=== PATIENT | male | born 1975 | race Caucasian/White ===

== ENCOUNTER 2024-04-23 10:26 | Emergency (ER) | payer OTHER, SELFPAY ==
[2024-04-23 10:34] VITALS: BP 108/79
--- NOTE | 2024-04-23 10:40 | ED.GENMED ---
History of Present Illness
General
Chief Complaint: Musculo-Skeletal Complaint
Source: patient
Exam Limitations: none
Time Seen by Provider: 04/23/24 10:46
Nursing documentation reviewed up to this point in time: agreed with
History of Present Illness
History of Present Illness:
49-year-old male presenting to the emergency department with concerns of ongoing right-sided shoulder discomfort after an injury while playing basketball. He claims he ran towards a wall to break his momentum he outstretched his right arm and felt
a sharp pain to his right shoulder. Initially had mild pain but discomfort and decreased range of motion has worsened over the past 2 days since the event. Denies any numbness weakness chest pain shortness of breath neck pain nausea vomiting.
Past History
Past History
ED Past Medical History: Other (History of Kawasaki disease, kidney stones); Negative Asthma, HTN, Hypercholesterolemia or NIDDM
ED Past Surgical History: Urological (Lithotripsy 1998, vasectomy)
Social History
Tobacco: Former smoker
Alcohol: Occasional
Personal:
Living: with family
Employment: Employed
Review of Systems
Review of Systems
Allergies reviewed?: Yes
All Other Systems: ROS reviewed and negative except as documented in HPI and ROS
Phy Exam
Physical Exam
Physical Exam:
GENERAL: Alert , in no apparent distress
EYE: pupils equal and reactive
NECK: Supple, no significant adenopathy.
ENT: o/p clr, mmm.
CARDIAC: Regular rate and rhythm .
LUNGS: Clear breath sounds bilaterally, no acute respiratory distress, no wheezes/rales/rhonchi
ABDOMEN: Soft, without focal tenderness, no r/g, no cvat
NEUROLOGICAL: Alert and oriented, no focal neuro deficits
SKIN: Warm and dry, skin intact.
MUSCULOSKELETAL: Significant discomfort when palpating the left deltoid region no tenderness throughout the clavicle scapula or the remainder of the upper extremity. Significant discomfort with abduction of the right shoulder not able to put his
arm behind his back without significant discomfort. Positive empty can test. No edema, well perfused.
PSYCH: Normal and appropriate interaction.
Course
Orders/Labs/Results
Orders:
Orders
04/23/24 10:38
Shoulder, Right, Trauma [CR Shoulder, Trauma - Right] Urgent
Comment: fell into wall and twisted arm
Reason For Exam: right shoulder pain since tuesday
Vital Signs
Initial and Last Documented VS:
Initial Vital Signs
Temp Pulse Resp BP Pulse Ox
98.0 F 70 16 108/79 98
04/23/24 10:34 04/23/24 10:34 04/23/24 10:34 04/23/24 10:34 04/23/24 10:34
Last Documented Vital Signs
Temp Pulse Resp BP Pulse Ox
98.0 F 70 16 108/79 98
04/23/24 10:34 04/23/24 10:34 04/23/24 10:34 04/23/24 10:34 04/23/24 10:34
MDM/Problems Addressed
MDM/Problems Addressed:
49-year-old male presenting to the emergency department after hitting his right shoulder while playing basketball 2 days ago. Initially mild symptoms but worsening decreased range of motion and discomfort to the right shoulder since. Significant
discomfort with overhead motion and movement behind the back of the right arm. On examination he had a positive empty can test and significant discomfort with abduction of the shoulder. Clinically seems to be consistent with potential rotator cuff
injury. X-ray without emergent findings. Stable for outpatient follow-up with orthopedics. Return precautions given.
*Critical Care Note
Total Time (30-74mins, 75-104mins- exclusive of procedures): Not Applicable
ED Attending Note
-
Portions of this chart may have been created with voice recognition software.� Occasional wrong word or��sound alike� substitutions may have occurred due to the inherent limitations of voice recognition software.
Discharge Plan
Departure
Patient Disposition: Home (Routine Discharge)
Date of Disposition: 04/23/24
Time of Disposition: 11:05
Patient with high blood pressure during this ER visit?: No
Condition: Good
Covid-19: Not Applicable
Discharge Problem:
Shoulder sprain
Instructions: Rotator Cuff Injury (DC)
Prescriptions:
No Action
hydrochlorothiazide 25 MG tablet
25 mg PO DAILY
tamsulosin 0.4 MG capsule
0.4 mg PO DAILY Qty: 14 0RF
tramadol 50 MG tablet
50 mg PO Q8HPRN PRN (Reason: pain) Qty: 30 0RF
phenazopyridine 100 MG tablet
100 mg PO BID Qty: 30 0RF
sulfamethoxazole-trimethoprim 1 TABLET tablet
1 tab PO BID Qty: 10 0RF
Referrals:
Tony Alatorre MD [Active] - Follow up in 1 week
Activity Restrictions/Additional Instructions:
You came to the emergency department today with concerns of shoulder discomfort. Here your x-ray was normal there likely is a soft tissue injury or potential rotator cuff injury. He will need to follow-up closely with orthopedics in the next 1 to
2 weeks. Return for any worsening, new or concerning symptoms.
Interventions
Interventions:
*Risk Screen - Suicide Last Done: 04/23/24 10:34
*Neglect/Abuse Screening Last Done: 04/23/24 10:34
Discharge Date and Time
Print Language: [place]
== END 2024-04-23 11:13 | disposition home or self-care (01) ==
LOC: EMR 10:26
PROVIDERS: EMERGENCY PHYSICIAN Student in an Organized Health Care Education/Training Program
DX: S43.401A Unspecified sprain of right shoulder joint, initial encounter (principal); Y93.67 Activity, basketball; M30.3 Mucocutaneous lymph node syndrome [Kawasaki]; Z87.442 Personal history of urinary calculi; Z87.891 Personal history of nicotine dependence
CPT/HCPCS: 99283; 73030

== ENCOUNTER 2024-08-18 04:24 | Emergency (ER) | payer OTHER, SELFPAY ==
[2024-08-18 04:26] VITALS: BP 130/79
[2024-08-18 04:38] VITALS: BMI 27.2
[2024-08-18 04:54] LABS: % Basophils 0.7 % (0-2); % Eosinophils 2.4 % (0-6); % Immature Granulocytes 0.2 % (0-0.5); % Lymphocytes 31.8 % (20.5-51.1); % Monocytes 10.1 % (1.7-9.3); % Neutrophils 54.8 % (42.2-75.2); Absolute Eosinophils 0.1 10^3/uL (0-0.7); Absolute Lymphocytes 1.9 10^3/uL (1.2-3.4); Absolute Monocytes 0.6 10^3/uL (0.1-0.6); Absolute Neutrophils 3.3 10^3/uL (1.4-6.5); Hematocrit 42.2 % (39.0-52.0); Hemoglobin 14.7 g/dL (13.0-18.0); Mean Corp Hgb Conc. 34.8 g/dL (33.0-37.0); Mean Corpuscular Hgb 30.6 pg (27.0-31.0); Mean Corpuscular Volume 87.9 fL (80.0-94.0); Mean Platelet Volume 10.4 fL (7.4-10.4); Nucleated Red Blood Cells % 0 % (-); Platelet Count 204 10^3/uL (130-400); Red Cell Dist. Width 12.4 % (11.5-14.5); White Blood Cell Count 5.9 10^3/uL (4.8-10.8)
[2024-08-18] MEDS: NSS 1000 IV (05:01)
[2024-08-18] MEDS: ZOFRAN 4 MG IV (05:02)
[2024-08-18] MEDS: TORADOL 15 MG IV (05:02)
[2024-08-18 05:16] LABS: Urine Albumin 1+ (Neg - Trace); Urine Bilirubin Negative (Negative); Urine Character Slightly Cloudy (Clear); Urine Color Yellow; Urine Glucose Negative (Negative); Urine Ketone Negative (Negative); Urine Leukocyte Negative (Negative); Urine Nitrite Negative (Negative); Urine Occult Blood 4+ (Negative); Urine Specific Gravity 1.025 (<1.030); Urine Urobilinogen Negative (Neg - 1+)
[2024-08-18 05:17] LABS: ALT (SGPT) 18 U/L (0-50); AST (SGOT) 20 U/L (17-59); Albumin 3.6 g/dl (3.5-5.0); Alkaline Phosphatase 56 U/L (38-126); Blood Urea Nitrogen 19 mg/dl (9-20); Calcium 9.3 mg/dl (8.4-10.2); Carbon Dioxide 26 mmol/L (22-30); Chloride 108 mmol/L (98-107); Estimated Creatinine Clearance > 125 ml/min; Glucose 114 mg/dl (70-99); Potassium 3.7 mmol/L (3.5-5.1); Sodium 142 mmol/L (135-145); Total Bilirubin 0.3 mg/dl (0.2-1.3); Total Protein 6.6 g/dl (6.3-8.2); eGFR > 60.00
[2024-08-18] MEDS: FLOMAX 0.4 MG PO (05:20)
--- NOTE | 2024-08-18 05:52 | ED.GENMED ---
History of Present Illness
General
Chief Complaint: Flank Pain
Time Seen by Provider: 08/18/24 04:55
History of Present Illness
History of Present Illness:
TIME OF INITIAL ENCOUNTER: 5 AM
HPI: Patient presents with abrupt onset left flank pain. This feels exactly the same as prior kidney stones. He has had no fevers. His symptoms started around 2:30 in the morning. He has had several stones in the past that has required our
management and others that have passed on their own.
EXAM:
GENERAL: Well appearing but appears uncomfortable
HEENT: Moist oral mucosa
ABDOMEN: Soft with no peritoneal signs, no tenderness, mild left CVA tenderness
NEUROLOGIC: Excellent strength all extremities, no coordination deficits
PSYCHIATRIC: Appropriate mental status, normal insight and judgement
EXTREMITIES: Nontender, no edema, moves all extremities equally
SKIN: No rash, no lesions
NUMBER AND COMPLEXITY OF PROBLEMS ADDRESSED AT THE ENCOUNTER
� Chronic conditions affecting care: Former smoker, multiple kidney stones
� Acute Exacerbation and/or Progression of Chronic Illness: This is an acute problem
� Differential Diagnosis includes: Ureteral stone
AMOUNT AND/OR COMPLEXITY OF DATA TO BE REVIEWED AND ANALYZED
� I performed an independent evaluation of and my interpretation is:
EKG:
CT:
X-rays:
Laboratory Studies: 4+ blood noted on urinalysis, no evidence of infection, white count normal, hemoglobin normal chemistries unremarkable including normal renal function
Other:
� Review of other/old records: I reviewed records, the patient went to the OR in [address] Yanes for management of left ureteral stone and stent placement with laser lithotripsy
� Clinical information was obtained by an independent historian: None needed
� Prescriptions/Medications Considered but not given:
� Further testing considered but not performed: Considered CT imaging however the patient has had multiple CTs in the past and is certain that this is a kidney stone causing his pain. Therefore we will hold off on CT given the
radiation risks.
RISK OF COMPLICATIONS AND/OR MORBIDITY OR MORTALITY OF PATIENT MANAGEMENT
� Social determinants of health affecting care: Lives at home
� Discussion with other providers: None needed
� Escalation of care including admission/observation vs risk of discharge considered: The patient was initially given Toradol, fluids, Flomax, and Zofran.
ANY OTHER UPDATES:
5:45 AM: I reassessed patient, somewhat improved with pain persists. Will give Dilaudid. He states his could drive him home. He has history of ureteral stone and microscopic hematuria on urinalysis today with no sign of infection. Basic
blood work is normal including normal white count normal creatinine.
6:30 AM: On reassessment after narcotic was given, he does appear more comfortable and states he feels improved but pain persists. Will give prescription for narcotic analgesia as well as Zofran and Flomax. He has noted Dr. Yanes is to follow-up
with him.
Past History
Past History
ED Past Medical History: Other (History of Kawasaki disease, kidney stones); Negative Asthma, HTN, Hypercholesterolemia or NIDDM
ED Past Surgical History: Urological (Lithotripsy 1998, vasectomy)
Social History
Tobacco: Former smoker
Alcohol: Occasional
Personal:
Living: with family
Employment: Employed
Phy Exam
Physical Exam
Physical Exam:
See HPI
Course
Orders/Labs/Results
Orders:
Orders
08/18/24 04:41
Complete Blood Count/With Diff Urgent
Comprehensive Metabolic Panel Urgent
Urine Culture Reflexed from UA [Urinalysis Reflex To Culture] Urgent
Date Specimen was Collected: 08/18/24
Time Specimen was Collected: 04:30
Urine Microscopic Reflex Cult Urgent
Urine Culture Urgent
[facility] Source: U
Specimen Description:
Date Specimen was Collected: 08/18/24
Time Specimen was Collected: 04:30
08/18/24 04:51
0.9% Sodium Chloride 1000 ml [Nss] 1,000 ml IV BOLUS
Ketorolac [Toradol] 15 mg IV NOW STA
Ondansetron Injectable [Zofran] 4 mg IV NOW STA
08/18/24 04:52
Ketorolac [Toradol] 15 mg .ROUTE .STK-MED ONE
Ondansetron Injectable [Zofran] 4 mg .ROUTE .STK-MED ONE
08/18/24 05:00
Tamsulosin [Flomax] 0.4 mg PO NOW STA
08/18/24 05:52
HYDROmorphone [Dilaudid] 1 mg IV NOW STA
Abnormal Lab Results
08/18/24
04:41
Monocytes % 10.1 H %
(1.7-9.3)
Chloride 108 H mmol/L
(98-107)
Glucose 114 H mg/dl
(70-99)
Ur Occult Blood Reflex 4+ A
(Negative)
Urine RBC >100 A /HPF
(0-2)
Urine Bacteria (Reflex) Many A
(Negative)
Urine Albumin (Reflex) 1+ A
(Neg - Trace)
08/18/24 04:41
08/18/24 04:41
Vital Signs
Initial and Last Documented VS:
Initial Vital Signs
Temp Pulse Resp BP Pulse Ox
36.6 C 74 20 130/79 96
08/18/24 04:26 08/18/24 04:26 08/18/24 04:26 08/18/24 04:26 08/18/24 04:26
Last Documented Vital Signs
Temp Pulse Resp BP Pulse Ox
36.6 C 61 14 108/73 95
08/18/24 04:26 08/18/24 06:11 08/18/24 06:11 08/18/24 06:11 08/18/24 06:11
*Critical Care Note
Total Time (30-74mins, 75-104mins- exclusive of procedures): Not Applicable
ED Attending Note
-
Portions of this chart may have been created with voice recognition software.� Occasional wrong word or��sound alike� substitutions may have occurred due to the inherent limitations of voice recognition software.
Discharge Plan
Departure
Patient Disposition: Home (Routine Discharge)
Date of Disposition: 08/18/24
Time of Disposition: 06:36
Patient with high blood pressure during this ER visit?: Yes
Discharge Problem:
Left ureteral stone
Instructions: Kidney Stones (DC), BLOOD PRESSURE
Prescriptions:
New
tamsulosin [Flomax] 0.4 mg capsule
0.4 mg PO DAILY Qty: 14 0RF
hydrocodone-acetaminophen 5-325 mg tablet
1 - 2 tab PO Q6H PRN (Reason: Pain) Qty: 14 0RF
ondansetron HCl 4 mg tablet
4 mg PO Q8H PRN (Reason: nausea and vomiting) 4 Days Qty: 14 0RF
No Action
hydrochlorothiazide 25 MG tablet
25 mg PO DAILY
oxycodone 5 mg Tablet
5 mg PO Q6H PRN (Reason: pain)
tamsulosin 0.4 MG capsule
0.4 mg PO DAILY PRN (Reason: pain)
Referrals:
Isidro Yanes Jr., MD [Family Provider] -
Activity Restrictions/Additional Instructions:
Your urinalysis shows blood which is commonly seen with kidney stones that get stuck in the ureter. There is no sign of an infection. You blood work is normal including normal white blood cell count and normal kidney function. I recommend 3-4
[id number] ibuprofen (Motrin) every 8 hours with food for a few days. Return here if worse.
Interventions
Interventions:
*Risk Screen - Suicide Last Done: 08/18/24 04:26
*General Assessment Last Done: 08/18/24 04:26
*Neglect/Abuse Screening Last Done: 08/18/24 04:26
*ED- Fall Risk Assessment Last Done: 08/18/24 04:26
NG-Fgthed-Fcobyliyyp Assessment Last Done: 08/18/24 04:39
ED-Male Genitourinary Assessment Last Done: 08/18/24 04:39
Discharge Date and Time
Print Language: [id number]
[2024-08-18 05:56] LABS: Urine Mucus Many; Urine Squamous Cell >30 /LPF (Few)
[2024-08-18 05:57] LABS: Urine Amorphous Seen; Urine Bacteria Many (Negative); Urine Red Blood Cell >100 /HPF (0-2)
[2024-08-18 06:11] VITALS: BP 108/73
[2024-08-18] MEDS: DILAUDID 1 MG IV (06:12)
== END 2024-08-18 07:07 | disposition home or self-care (01) ==
LOC: EMR 04:24
PROVIDERS: EMERGENCY PHYSICIAN Emergency Medicine; FAMILY PHYSICIAN Specialist
DX: N21.1 Calculus in urethra (principal); M30.3 Mucocutaneous lymph node syndrome [Kawasaki]; Z87.442 Personal history of urinary calculi; Z87.891 Personal history of nicotine dependence
CPT/HCPCS: 99283; 96374; 96375; 96361; 80053; 81003; 81015; 85025; 87086